=== PATIENT | male | born 1970 | race Caucasian/White ===

== ENCOUNTER 2016-11-17 10:39 | Observation (INO) | payer SELFPAY ==
--- NOTE | 2016-11-17 10:58 | ER Document Report ---
ED Medical Screen (RME) - General Stated Complaint: ARM PAIN Mode of Arrival: Ambulatory Information source: Patient Notes: Patient complains of abscess to right forearm for the past 3 weeks. Patient does report that he is a heroin IV drug user. Patient denies any fever. I have greeted and performed a rapid initial assessment of this patient. A comprehensive ED assessment and evaluation of the patient, analysis of test results and completion of the medical decision making process will be conducted by additional ED providers. TRAVEL OUTSIDE OF THE [place] IN LAST 30 DAYS: No - Related Data Allergies/Adverse Reactions: milnacipran HCl [From Savella] Allergy (Verified 11/17/16 10:57) Past Medical History - Past Medical History Cardiac Medical History: Reports: Hx Hypertension Musculoskeltal Medical History: Reports Hx Arthritis - Immunizations Immunizations up to date: No Hx Diphtheria, Pertussis, Tetanus Vaccination: Yes Physical Exam - Vital signs Vitals: Temp Pulse Resp BP 97.4 F 72 20 127/71 H 11/17/16 10:45 11/17/16 10:45 11/17/16 10:45 11/17/16 10:45 - Skin Skin irregularity: Abscess - Right forearm Course - Vital Signs Vital signs: Temp Pulse Resp BP Pulse Ox 97.4 F 72 20 127/71 H 11/17/16 10:45 11/17/16 10:45 11/17/16 10:45 11/17/16 10:45
[2016-11-17 13:20] LABS: ABSOLUTE EOSINOPHILS # (AUTO) 0.3 10^3/uL (0.0-0.6); ABSOLUTE LYMPHOCYTES (AUTO) 1.7 10^3/uL (0.5-4.7); ABSOLUTE MONOCYTES (AUTO) 1.1 10^3/uL (0.1-1.4); ABSOLUTE NEUT (AUTO) 10.5 10^3/uL (1.7-8.2); BASOPHILS % (AUTO) 0.3 % (0-2); EOSINOPHILS % (AUTO) 1.9 % (0-6); HEMATOCRIT 46.2 % (37.9-51.0); HEMOGLOBIN 14.9 g/dL (13.5-17.0); HGB HCT DIFFERENCE -1.5; LYMPHOCYTES % (AUTO) 12.4 % (13-45); MEAN CORPUSCULAR HEMOGLOBIN 28.3 pg (27.0-33.4); MEAN CORPUSCULAR HGB CONC 32.3 g/dL (32.0-36.0); MEAN CORPUSCULAR VOLUME 88 fl (80-97); RED BLOOD COUNT 5.27 10^6/uL (4.35-5.55); RED CELL DISTRIBUTION WIDTH 13.9 % (11.5-14.0); SEGMENTED NEUTROPHILS % (AUTO) 77.4 % (42-78); WHITE BLOOD COUNT 13.5 10^3/uL (4.0-10.5)
--- NOTE | 2016-11-17 13:23 | ER Document Report ---
ED Extremity Problem, Upper - General Chief Complaint: Arm Pain Stated Complaint: ARM PAIN Mode of Arrival: Ambulatory Notes: This is a [id number]-twccfeff 38-year-old male with a history of heroin abuse that presents today with right forearm pain. He states that one month ago he was using heroin and missed a vein. He noticed a small bump that progressively got larger and more erythematous. Over the past 2 days he has tried draining abscess himself. He states that yesterday he withdrew with a needle approximately 60 mL of brown and yellow fluid. Denies vomiting or fever but admits to chills and nausea. He admits to constant 9 out of 10 right arm pain with movement. He characterizes the pain as a tightness. TRAVEL OUTSIDE OF THE [place] IN LAST 30 DAYS: No - Related Data Allergies/Adverse Reactions: milnacipran HCl [From Savella] Allergy (Verified 11/17/16 10:58) Past Medical History - General Information source: Patient - Social History Smoking Status: Current Every Day Smoker Chew tobacco use (# tins/day): No Frequency of alcohol use: Social Drug Abuse: Heroin Family History: Reviewed & Not Pertinent Patient has suicidal ideation: No Patient has homicidal ideation: No - Past Medical History Cardiac Medical History: Reports: Hx Hypertension Renal/ Medical History: Denies: Hx Peritoneal Dialysis Musculoskeltal Medical History: Reports Hx Arthritis - Immunizations Immunizations up to date: No Hx Diphtheria, Pertussis, Tetanus Vaccination: Yes Review of Systems - Review of Systems Constitutional: denies: Chills, Fever EENT: No symptoms reported Cardiovascular: No symptoms reported Respiratory: No symptoms reported Gastrointestinal: No symptoms reported Genitourinary: No symptoms reported Musculoskeletal: See HPI Skin: See HPI Hematologic/Lymphatic: No symptoms reported Neurological/Psychological: No symptoms reported Physical Exam - Vital signs Vitals: Temp Pulse Resp BP 97.4 F 72 20 127/71 H 11/17/16 10:45 11/17/16 10:45 11/17/16 10:45 11/17/16 10:45 - General General appearance: Appears well In distress: None - HEENT Head: Normocephalic, Atraumatic Eyes: Normal Conjunctiva: Normal - Respiratory Respiratory status: No respiratory distress Breath sounds: Normal. No: Rales, Rhonchi, Stridor, Wheezing - Cardiovascular Rhythm: Regular Heart sounds: Normal auscultation - Abdominal Bowel sounds: Normal Tenderness: Nontender - Extremities General upper extremity: Tender - Right mid forearm erythematous raised 4 x 3 cm area. It is soft to touch General lower extremity: Normal inspection, Nontender, Normal strength - Neurological Cognition: Normal. No: Confused - Psychological Associated symptoms: Normal affect, Normal mood - Skin Skin Temperature: Warm Skin Moisture: Dry Skin Color: Normal Course - Re-evaluation Re-evalutation: 11/17/16 11:02 Patient was discussed with Dr. Loomis. He was taken to the OR for surgical evaluation and drainage. - Vital Signs Vital signs: Temp Pulse Resp BP Pulse Ox 99.0 F 62 12 126/72 H 94 11/17/16 16:57 11/17/16 16:57 11/17/16 16:57 11/17/16 16:57 11/17/16 16:57 - Laboratory Result Diagrams: 11/17/16 12:58 11/17/16 12:58 Discharge - Discharge Clinical Impression: Abscess of right arm Condition: Stable Disposition: ADMITTED INPATIENT Admitting Provider: Surgicalist
[2016-11-17 13:37] LABS: ALANINE AMINOTRANSFERASE 16 U/L (21-72); ALBUMIN 3.7 g/dL (3.5-5.0); ALKALINE PHOSPHATASE 51 U/L (38-126); ANION GAP 10 (5-19); ASPARTATE AMINO TRANSFERASE 11 U/L (17-59); BILIRUBIN,TOTAL 0.7 mg/dL (0.2-1.3); BLOOD UREA NITROGEN 8 mg/dL (7-20); CALCIUM 9.4 mg/dL (8.4-10.2); CARBON DIOXIDE 29 mmol/L (22-30); CHLORIDE 101 mmol/L (98-107); GLUCOSE 82 mg/dL (75-110); POTASSIUM 4.5 mmol/L (3.6-5.0); SODIUM 140.1 mmol/L (137-145); TOTAL PROTEIN 6.7 g/dL (6.3-8.2)
[2016-11-17] MEDS ORDERED: LIDOCAINE 1%/EPINEPHRINE INJ 20 ML VIAL ONE (14:14)
[2016-11-17] MEDS ORDERED: BUPIVACAINE HCL 0.25 % INJ/PF (2.5 MG/1 ML) 30 ML VIAL ONE (14:14)
[2016-11-17] MEDS ORDERED: EPHEDRINE SULFATE INJ 50 MG/1 ML AMPULE ONE (14:43)
[2016-11-17] MEDS ORDERED: FENTANYL CITRATE INJ/PF 250 MCG/5 ML AMPULE ONE (14:43)
[2016-11-17] MEDS ORDERED: MIDAZOLAM 2 MG/2 ML INJ ONE ×2 (14:43→15:13)
[2016-11-17] MEDS ORDERED: PROPOFOL INJ 200 MG/20 ML VIAL IV ONE ×2 (14:44→15:13)
[2016-11-17] MEDS ORDERED: DEXMEDETOMIDINE INJ 80 MCG/20 ML VIAL IV ONE (14:44)
[2016-11-17] MEDS ORDERED: FENTANYL CITRATE INJ/PF 100 MCG/2 ML AMPUL ONE ×2 (15:13)
[2016-11-17] MEDS ORDERED: HYDROMORPHONE HCL INJ/PF 2 MG/ML AMPULE ONE (15:46)
[2016-11-17] MEDS ORDERED: MORPHINE SULFATE 10 MG/ML INJ IV PRN ×2 (15:55→16:09)
[2016-11-17] MEDS ORDERED: DIPHENHYDRAMINE HCL 50 MG/ML VIAL IV PRN (15:55)
[2016-11-17] MEDS ORDERED: FENTANYL CITRATE INJ/PF 100 MCG/2 ML AMPUL IV PRN ×3 (15:55)
[2016-11-17] MEDS ORDERED: PROMETHAZINE HCL INJ 25 MG/1 ML VIAL IV PRN ×2 (15:55)
[2016-11-17] MEDS ORDERED: OXYCODONE-ACETAMINOPHEN 5-325 MG TABLET PO PRN ×2 (15:55)
[2016-11-17] MEDS ORDERED: MEPERIDINE HCL/PF INJ 25 MG/1 ML DISP.SYRIN IV PRN (15:55)
[2016-11-17] MEDS ORDERED: ERTAPENEM SODIUM 1 GM in NORMAL SALINE 50 ML IV ONE (16:00)
[2016-11-17] MEDS ORDERED: KETOROLAC TROMETHAMINE INJ/PF 30 MG/1 ML SDV IV PRN (16:16)
--- NOTE | 2016-11-17 16:21 | Operative Report ---
Operative Report DATE OF SURGERY: 11/17/16 PREOPERATIVE DIAGNOSIS: Right forearm abscess POSTOPERATIVE DIAGNOSIS: Right forearm abscess OPERATION: Right forearm abscess incision and drainage SURGEON: REBECCA MEJIA ANESTHESIA: GA TISSUE REMOVED OR ALTERED: Pus sent for Gram stain and culture COMPLICATIONS: None ESTIMATED BLOOD LOSS: minimal INTRAOPERATIVE FINDINGS: Proximally 3 x 5 cm abscess cavity in the patient's right mid radial dorsal forearm fail with foul-smelling pus. PROCEDURE: Informed consent was obtained. Patient was brought to the operating room placed on the operating table in supine position. After saturation induction of general anesthesia patient's right arm was prepped and draped in usual sterile fashion. Patient had a diffuse area of redness with central fluctuance at the mid right radial dorsal forearm. At the maximum fluctuant region a longitudinally oriented incision was made entering an abscess cavity filled with pus. The abscess cavity itself measured about 5 x 3 cm inside. it was probed to make sure there were no undrained tracts. Hemostasis was achieved with electrocautery just at the skin edges. The wound was then irrigated. The wound was then packed with iodoform gauze. Local anesthetic was injected. Patient tolerated procedure well with no apparent competitions and was taken to the recovery area in stable condition.
[2016-11-17 17:03] VITALS: BP 126/72
--- NOTE | 2016-11-17 18:38 | DISCHARGE SUMMARY E ---
Discharge Summary NAME: ADYE MCKEON : 1970 AGE: 46Y ADMITTED: 11/17/2016 DISCHARGED: 11/17/2016 LEAVE AGAINST MEDICAL ADVICE NOTE DISCHARGE DIAGNOSIS: Right forearm abscess. PROCEDURE PERFORMED DURING HOSPITALIZATION: Right forearm abscess incision and drainage performed by Dr. Marcus Mejia on 11/17/2016. HOSPITAL COURSE: The patient underwent the above-mentioned surgery. Upon recovering from anesthesia, the patient decided to leave against medical advice. DICTATING PHYSICIAN: MARCUS MEJAI M.D. [id number] PHY#: [id number] ID: [id number] JOB#: [id number] ACCT: [id number] cc:Christie OROZCO MD, M.D. [facility],
[2016-11-17] MEDS ORDERED: LIDOCAINE 2% INJ-PF (20 MG/ML) 10 ML AMPUL ONE (19:05)
[2016-11-17] MEDS ORDERED: SUCCINYLCHOLINE CHLORIDE INJ 200 MG/10 ML VIAL ONE (19:05)
[2016-11-17] MEDS ORDERED: ONDANSETRON HCL INJ/PF 4 MG/2 ML SDV ONE (19:05)
--- NOTE | 2016-11-27 10:08 | PDOC H&P ---
History of Present Illness Patient complains of: Right forearm pain History of Present Illness: AYDE MCKEON is a 46 year old male With long history of heroin abuse noted with the right forearm pain and redness and swelling for the past month. It has been worsening the past couple of days with the purulent drainage. Uncertain whether he has had any fevers or chills. No known history of HIV or hepatitis Past Medical History Cardiac Medical History: Reports: Hypertension Musculoskeltal Medical History: Reports: Arthritis Social History Smoking Status: Current Every Day Smoker Hx Recreational Drug Use: Yes Drugs: Heroin Family History Family History: Reviewed & Not Pertinent Parental Family History Reviewed: No Children Family History Reviewed: No Sibling(s) Family History Reviewed.: No Medication/Allergy Home Medications: No Home Medications 05/11/16 Allergies/Adverse Reactions: milnacipran HCl [From Savella] Allergy (Verified 11/17/16 10:58) Physical Exam Vital Signs: Temp Pulse Resp BP Pulse Ox 97.4 F 72 20 127/71 H 11/17/16 10:45 11/17/16 10:45 11/17/16 10:45 11/17/16 10:45 Intake & Output 11/16/16 11/17/16 11/18/16 06:59 06:59 06:59 Weight 83.9 kg General appearance: PRESENT: no acute distress Respiratory exam: PRESENT: clear to auscultation oscar Cardiovascular exam: PRESENT: RRR GI/Abdominal exam: PRESENT: other - Soft nondistended nontender to palpation, no palpable hepatosplenomegaly Extremities exam: PRESENT: other - Left arm with multiple track syed but no erythema no induration. Right forearm at the dorsal radial aspect with approximately 6 cm region of fluctuance with the erythema and tenderness. Neurovascularly intact distally. Assessment & Plan - Diagnosis (1) Abscess Is this a current diagnosis for this admission?: YesPlan: Large right forearm abscess. Will plan incision and drainage and washout in the operating room. I have discussed with patient risk and benefits of procedure including risk of adjacent structure injury and spreading of infection and bleeding patient understands and agrees to proceed.
== END 2016-11-17 19:18 | disposition left against medical advice (07) ==
LOC: ER 10:39 → INTOOBSV 12:57 → EH 12:57 → UNDOADMIN 13:48 → 4N 17:22
PROC: 0H9DXZZ Drainage of Right Lower Arm Skin, External Approach (ICD-10-PCS; principal; 2016-11-17 15:00)
DX: L02.413 Cutaneous abscess of right upper limb (principal); F11.10 Opioid abuse, uncomplicated; I10 Essential (primary) hypertension; M19.90 Unspecified osteoarthritis, unspecified site; F17.210 Nicotine dependence, cigarettes, uncomplicated
CPT/HCPCS: 99284; 36415; 87070; 87205; 85025; 87075; 87077; 80053; 86701; 80074; 10061; G0378; J2250; J3010; J1170; J0330; J2405; J2704; J3490; 400

== ENCOUNTER 2016-11-18 08:09 | Emergency (ER) | payer SELFPAY ==
[2016-11-18 08:14] VITALS: BP 134/77
[2016-11-18] MEDS ORDERED: SULFAMETHOXAZOLE/TRIMETHOPRIM 800-160 MG TABLET PO ONE (08:35)
--- NOTE | 2016-11-18 08:42 | ER Document Report ---
HPI - HPI Patient complains to provider of: right arm abscess I and D recheck Onset: Last week Onset/Duration: Gradual Quality of pain: Burning Pain Level: 2 Context: 46 yo male here for the right forearm abscess recheck. It was an abscess caused by IV injection of Heroin. He states it feels much better, no fever, no chest pain or sob. Taking the antibiotic. - REPRODUCTIVE Reproductive: DENIES: : - DERM Skin Color: Normal Past Medical History - General Information source: Patient - Social History Smoking Status: Current Every Day Smoker Chew tobacco use (# tins/day): No Frequency of alcohol use: None Drug Abuse: Heroin Lives with: Family Family History: Reviewed & Not Pertinent Patient has suicidal ideation: No Patient has homicidal ideation: No - Past Medical History Cardiac Medical History: Reports: Hx Hypertension Musculoskeltal Medical History: Reports Hx Arthritis Skin Medical History: Denies Hx MRSA Surgical Hx: Negative - Immunizations Immunizations up to date: No Hx Diphtheria, Pertussis, Tetanus Vaccination: Yes Vertical Provider Document - CONSTITUTIONAL Agree With Documented VS: Yes Exam Limitations: No Limitations General Appearance: No Apparent Distress - INFECTION CONTROL TRAVEL OUTSIDE OF THE [place] IN LAST 30 DAYS: No - HEENT HEENT: Normocephalic - NECK Neck: Supple - RESPIRATORY Respiratory: Breath Sounds Normal, No Respiratory Distress O2 Sat by Pulse Oximetry: 100 - CARDIOVASCULAR Cardiovascular: Regular Rate, Regular Rhythm - MUSCULOSKELETAL/EXTREMETIES Musculoskeletal/Extremeties: MAEW, FROM, Tender - incision dorsal mid right arm with packing. no pus, minimal surrounding erythema, some edema to the forearm and hand. N/V intact. Course - Vital Signs Vital signs: Temp Pulse Resp BP Pulse Ox 98.1 F 69 18 134/77 H 100 11/18/16 08:14 11/18/16 08:14 11/18/16 08:14 11/18/16 08:14 11/18/16 08:14 Discharge - Discharge Clinical Impression: Abscess re-check Condition: Good Disposition: HOME, SELF-CARE Instructions: Trimethoprim-Sulfa ([facility]), Abscess ([facility]) Additional Instructions: remove the packing when you are in the shower wednesday, wash the whole woun with antibacterial soap and water dry dressing the wound will heal from inside to outside keep covered return to the ER if you have increased pain, swelling, fever, any concerns elevate the arm above the heart to reduce the swelling, use the sling Prescriptions: Sulfamethoxazole/Trimethoprim [Sulfamethoxazole-Tmp Ds Tablet] 1 each PO BID # 14 tablet Referrals: PERCY MURPHY MD [Primary Care Provider] - Follow up as needed
== END 2016-11-18 08:50 | disposition home or self-care (01) ==
LOC: ER 08:09
DX: Z48.817 Encounter for surgical aftercare following surgery on the skin and subcutaneous tissue (principal); L02.413 Cutaneous abscess of right upper limb; F11.10 Opioid abuse, uncomplicated; F17.200 Nicotine dependence, unspecified, uncomplicated
CPT/HCPCS: 99282

== ENCOUNTER 2017-05-03 07:12 | Observation (INO) | payer SELFPAY ==
[2017-05-03 07:18] VITALS: BP 174/84
[2017-05-03] MEDS ORDERED: CLONIDINE HCL 0.1 MG TABLET PO ONE (07:21)
[2017-05-03] MEDS ORDERED: ONDANSETRON 4 MG TAB.RAPDIS PO ONE (07:21)
--- NOTE | 2017-05-03 07:21 | ER Document Report ---
ED General - General Chief Complaint: Herion Withdrawal Stated Complaint: WITHDRAWAL/CHEST PAIN Time Seen by Provider: 05/03/17 07:20 Mode of Arrival: Ambulatory Information source: Patient Notes: 46-year-old male of 100 daily chest pain for 3 weeks with shortness of breath for 3 days. Her cardiac history although he is on IV heroin user 3-4 times a day for over a year. Last dose of heroin was 24 hours ago. He states he is in withdrawal. He is tachypneic with a rate of 36. Nausea vomiting or diarrhea. He states he is constipated. no hx MRSA, endocarditis, PE. TRAVEL OUTSIDE OF THE [place] IN LAST 30 DAYS: No - Related Data Allergies/Adverse Reactions: milnacipran HCl [From Savella] Allergy (Verified 05/03/17 07:16) Past Medical History - General Information source: Patient - Social History Smoking Status: Current Every Day Smoker Frequency of alcohol use: Occasional Drug Abuse: Heroin - 24 hours ago IV Lives with: Family Family History: Reviewed & Not Pertinent Patient has suicidal ideation: Yes Patient has homicidal ideation: No - Past Medical History Cardiac Medical History: Reports: Hx Hypertension Renal/ Medical History: Denies: Hx Peritoneal Dialysis Musculoskeltal Medical History: Reports Hx Arthritis Skin Medical History: Denies Hx MRSA Surgical Hx: Negative - Immunizations Immunizations up to date: No Hx Diphtheria, Pertussis, Tetanus Vaccination: Yes Review of Systems - Review of Systems Constitutional: No symptoms reported EENT: No symptoms reported Cardiovascular: See HPI Respiratory: See HPI Gastrointestinal: No symptoms reported Genitourinary: No symptoms reported Male Genitourinary: No symptoms reported Musculoskeletal: No symptoms reported Skin: No symptoms reported Hematologic/Lymphatic: No symptoms reported Neurological/Psychological: No symptoms reported Physical Exam - Vital signs Vitals: Temp Pulse Resp BP Pulse Ox 98.3 F 71 36 H 174/84 H 100 05/03/17 07:16 05/03/17 07:16 05/03/17 07:16 05/03/17 07:16 05/03/17 07:16 Interpretation: Tachypneic - General General appearance: Alert, Anxious - HEENT Head: Normocephalic, Atraumatic Eyes: Normal Conjunctiva: Normal Pupils: PERRL Mucous membranes: Dry Pharynx: Normal Neck: Supple. No: Thyromegally - Respiratory Respiratory status: No respiratory distress Chest status: Nontender Breath sounds: Normal Chest palpation: Normal - Cardiovascular Rhythm: Regular Heart sounds: Normal auscultation Murmur: No - Abdominal Inspection: Normal Distension: No distension Bowel sounds: Normal Tenderness: Nontender. No: Tender Organomegaly: No organomegaly. No: Hepatomegaly, Splenomegaly - Back Back: Normal, Nontender - Extremities General upper extremity: Normal inspection, Nontender, Normal color, Normal ROM , Normal temperature General lower extremity: Normal inspection, Nontender, Normal color, Normal ROM , Normal temperature, Normal weight bearing. No: Isiah's sign - Neurological Neuro grossly intact: Yes Cognition: Normal Orientation: AAOx4 Sarah Coma Scale Eye Opening: Spontaneous [place] Coma Scale Verbal: Oriented Sarah Coma Scale Motor: Obeys Commands Sarah Coma Scale Total: 15 Speech: Normal Motor strength normal: LUE, RUE, LLE, RLE Sensory: Normal - Psychological Associated symptoms: Normal affect, Normal mood - Skin Skin Temperature: Warm Skin Moisture: Dry Skin Color: Normal Skin irregularity: negative: Rash Course - Re-evaluation Re-evalutation: 05/03/17 08:[address] melendrez, get the CTA. 05/03/17 08:41 pt pulse now 49, the nurse is doing EKG now, t wave inversion V5 and 6, dr. melendrez aware, wants old EKG. 05/03/17 08:47 EKG from 2011 does not show any T-wave inversion. The patient states that his most recent EKG. 05/03/17 09:02 chest pain free at this time 05/03/17 10:57 CTA is negative. Call to dr. Lloyd, troponin is negative. still pain free. - Vital Signs Vital signs: Temp Pulse Resp BP Pulse Ox 98.3 F 71 36 H 174/84 H 100 05/03/17 07:16 05/03/17 07:16 05/03/17 07:16 05/03/17 07:16 05/03/17 07:16 - Laboratory Result Diagrams: 05/03/17 08:34 05/03/17 08:53 Laboratory results interpreted by me: 05/03/17 08:53 Chloride 109 H BUN 5 L ALT 20 L Creatine Kinase 45 L Discharge - Discharge Clinical Impression: Heroin abuse, t wave inversion V4,5,6 Chest pain Qualifiers: Chest pain type: unspecified Qualified Code(s): R07.9 - Chest pain, unspecified Condition: Stable Disposition: ADMITTED OBSERVATION Admitting Provider: Hospitalist Unit Admitted: Telemetry
[2017-05-03] MEDS ORDERED: ASPIRIN 81 MG TABLET, CHEWABLE PO ONE (08:04)
[2017-05-03] MEDS ORDERED: NORMAL SALINE 1000 ML 1,000 ML IV ONE (08:06)
[2017-05-03 08:41] LABS: ABSOLUTE BASOPHILS # (AUTO) 0.1 10^3/uL (0.0-0.2); ABSOLUTE EOSINOPHILS # (AUTO) 0.1 10^3/uL (0.0-0.6); ABSOLUTE LYMPHOCYTES (AUTO) 1.9 10^3/uL (0.5-4.7); ABSOLUTE MONOCYTES (AUTO) 0.7 10^3/uL (0.1-1.4); ABSOLUTE NEUT (AUTO) 7.4 10^3/uL (1.7-8.2); BASOPHILS % (AUTO) 0.6 % (0-2); EOSINOPHILS % (AUTO) 0.8 % (0-6); HEMATOCRIT 44.8 % (37.9-51.0); HEMOGLOBIN 14.8 g/dL (13.5-17.0); HGB HCT DIFFERENCE -0.4; LYMPHOCYTES % (AUTO) 18.6 % (13-45); MEAN CORPUSCULAR HEMOGLOBIN 28.3 pg (27.0-33.4); MEAN CORPUSCULAR VOLUME 86 fl (80-97); MONOCYTES % (AUTO) 6.8 % (3-13); RED BLOOD COUNT 5.23 10^6/uL (4.35-5.55); SEGMENTED NEUTROPHILS % (AUTO) 73.2 % (42-78); WHITE BLOOD COUNT 10.2 10^3/uL (4.0-10.5)
--- NOTE | 2017-05-03 08:41 | RADIOLOGY REPORT (SQ) ---
EXAM DESCRIPTION: CHEST SINGLE VIEW COMPLETED DATE/TIME: 05/03/2017 8:24 am REASON FOR STUDY: chest pain COMPARISON: 10/21/2011 EXAM PARAMETERS: NUMBER OF VIEWS: One view. TECHNIQUE: Single frontal radiographic view of the chest acquired. RADIATION DOSE: NA LIMITATIONS: None. FINDINGS: LUNGS AND PLEURA: No opacities, masses or pneumothorax. No pleural effusion. MEDIASTINUM AND HILAR STRUCTURES: No masses. Contour normal. HEART AND VASCULAR STRUCTURES: Heart normal in size. Normal vasculature. BONES: No acute findings. HARDWARE: None in the chest. OTHER: No other significant finding. IMPRESSION: NO ACUTE RADIOGRAPHIC FINDING IN THE CHEST. TECHNICAL DOCUMENTATION: JOB ID: [id number]
[2017-05-03 10:09] LABS: ALANINE AMINOTRANSFERASE 20 U/L (21-72); ALBUMIN 3.8 g/dL (3.5-5.0); ALKALINE PHOSPHATASE 63 U/L (38-126); ANION GAP 8 (5-19); ASPARTATE AMINO TRANSFERASE 27 U/L (17-59); BILIRUBIN,DIRECT 0.3 mg/dL (0.0-0.4); BILIRUBIN,TOTAL 0.7 mg/dL (0.2-1.3); BLOOD UREA NITROGEN 5 mg/dL (7-20); CALCIUM 8.9 mg/dL (8.4-10.2); CARBON DIOXIDE 26 mmol/L (22-30); CHLORIDE 109 mmol/L (98-107); CREATINE KINASE 45 U/L (55-170); CREATININE RESULT 0.74 mg/dL (0.52-1.25); GLUCOSE 104 mg/dL (75-110); POTASSIUM 3.6 mmol/L (3.6-5.0); TOTAL PROTEIN 6.9 g/dL (6.3-8.2)
[2017-05-03 10:20] LABS: CREATINE KINASE MB 0.48 ng/mL (<4.55); TROPONIN I < 0.012 ng/mL
--- NOTE | 2017-05-03 10:54 | RADIOLOGY REPORT (SQ) ---
EXAM DESCRIPTION: CTA CHEST COMPLETED DATE/TIME: 05/03/2017 10:44 am REASON FOR STUDY: chest pain shortness of breath COMPARISON: None. TECHNIQUE: CT scan of the chest performed using helical scanning technique with dynamic intravenous contrast injection. Images reviewed with lung, soft tissue and bone windows. Reconstructed coronal and sagittal MPR images reviewed. Additional 3 dimensional post-processing performed to develop Maximal Intensity Projection images (PA P). All images stored on PACS. All CT scanners at this facility use dose modulation, iterative reconstruction, and/or weight based d osing when appropriate to reduce radiation dose to as low as reasonably achievable (ALARA). [facility]: Dose Right [facility]: CareDose [facility]: Dose Right [facility]: Teradose 4D [facility]: [employer] CONTRAST TYPE AND DOSE: contrast/concentration: Isovue 370.00 mg/ml; Total Contrast Delivered: 72.0 ml; Total Saline Delivered: 100.0 ml RENAL FUNCTION: BUN 5 creatinine 0.7 RADIATION DOSE: 35.37 . LIMITATIONS: None. FINDINGS: LUNGS AND PLEURA: Dependent atelectasis. AORTA AND GREAT VESSELS: No aneurysm or dissection. HEART: No pericardial effusion. PULMONARY ARTERIES: No emboli visualized in the main pulmonary arteries or the segmental branches. HILAR AND MEDIASTINAL STRUCTURES: No identified masses or abnormal nodes. HARDWARE: None in the chest. UPPER ABDOMEN: No significant findings. Limited exam. THYROID AND OTHER SOFT TISSUES: No masses. No adenopathy. BONES: No acute or significant finding. 3D MIPS: Confirm above findings. OTHER: No other significant finding. IMPRESSION: No evidence of pulmonary embolus. TECHNICAL DOCUMENTATION: JOB ID: [id number] Quality ID # [id number]: Final reports with documentation of one or more dose reduction techniques (e.g., Au tomated exposure control, adjustment of the mA and/or kV according to patient size, use of iterative reconstruction technique) 2010 [employer]- All Rights Reserved
[2017-05-03] MEDS ORDERED: NICOTINE 21 MG/24 HR PATCH.TD24 TD PRN (11:20)
[2017-05-03 11:44] LABS: URINE BARBITURATES SCREEN NEGATIVE; URINE METHADONE SCREEN NEGATIVE; URINE OPIATES LOW UNCONFIRMED POSITIVE; URINE PHENCYCLIDINE SCREEN NEGATIVE
--- NOTE | 2017-05-03 12:43 | EKG REPORT ---
SEVERITY:- ABNORMAL ECG - SINUS BRADYCARDIA BORDERLINE LEFT AXIS DEVIATION ABNRM R PROG, CONSIDER ASMI OR LEAD PLACEMENT ABNORMAL T, CONSIDER ISCHEMIA, LATERAL LEADS : Confirmed by: Mandeep Solo MD 03-May-2017 12:42:14
== END 2017-05-03 11:23 | disposition left against medical advice (07) ==
LOC: ER 07:12 → EH 11:08
PROVIDERS: ADMIT Family Medicine; ATTEND Family Medicine
DX: F11.10 Opioid abuse, uncomplicated (principal); R07.9 Chest pain, unspecified; R94.31 Abnormal electrocardiogram [ECG] [EKG]; Z53.21 Procedure and treatment not carried out due to patient leaving prior to being seen by health care provider; K59.00 Constipation, unspecified; R06.02 Shortness of breath; R00.0 Tachycardia, unspecified; F17.200 Nicotine dependence, unspecified, uncomplicated; R82.5 Elevated urine levels of drugs, medicaments and biological substances
CPT/HCPCS: 93005; 99285; 36415; 82553; 82550; 85025; 80053; 84484; 80307; 71010; 71275; 93010; S0119; J7030

== ENCOUNTER 2018-07-18 07:49 | Emergency (ER) | payer SELFPAY ==
[2018-07-18 08:24] VITALS: BP 136/80
[2018-07-18] MEDS ORDERED: VANCOMYCIN HCL INJ 1000 MG VIAL IV ONE (10:16)
[2018-07-18] MEDS ORDERED: NICOTINE 21 MG/24 HR PATCH.TD24 TD ONE (10:16)
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
== END 2018-07-18 11:40 | disposition left against medical advice (07) ==
LOC: ER 07:49
DX: L02.414 Cutaneous abscess of left upper limb (principal); F11.10 Opioid abuse, uncomplicated; X37.0XXA Hurricane, initial encounter; Z86.14 Personal history of Methicillin resistant Staphylococcus aureus infection; I10 Essential (primary) hypertension; F17.200 Nicotine dependence, unspecified, uncomplicated
CPT/HCPCS: 36415; 87040; 87077; 87186; 99281

== ENCOUNTER 2018-08-24 15:20 | Emergency (ER) | payer SELFPAY ==
--- NOTE | 2018-08-24 15:50 | ER Document Report ---
ED GI/ - General Chief Complaint: Constipation Stated Complaint: CONSTIPATED Time Seen by Provider: 08/24/18 15:43 Mode of Arrival: Ambulatory Information source: Patient Notes: 47-year-old male presented to ED for complaint of lower abdominal pain and no bowel movement for 3 days. He states he is taking about fleets enemas as well as Ex-Lax this morning with only one small pimple-like stool. Patient is alert and oriented respirations regular and unlabored. He states he smokes about 2 packs a day states he has quit drinking but he uses heroin about $50 a day and is used it is 730 this morning. TRAVEL OUTSIDE OF THE [place] IN LAST 30 DAYS: No - HPI Patient complains to provider of: Abdominal pain, Other - The patient Onset: Other - Stool in 3 days Timing/Duration: Persistent Quality of pain: Cramping Severity at maximum: Moderate Severity in ED: Moderate Pain Level: 4 Location: Other - The last Associated symptoms: Constipation Exacerbated by: Denies Relieved by: Denies Similar symptoms previously: Yes Recently seen / treated by doctor: Yes - Related Data Allergies/Adverse Reactions: milnacipran HCl [From Savella] Allergy (Verified 08/24/18 15:20) Past Medical History - General Information source: Patient - Social History Smoking Status: Current Every Day Smoker Cigarette use (# per day): Yes - 2 Per day Chew tobacco use (# tins/day): No Smoking Education Provided: Yes - 4 min Frequency of alcohol use: states he stopped Drug Abuse: Heroin Occupation: electrician third Lives with: Friend Family History: Reviewed & Not Pertinent Patient has suicidal ideation: No Patient has homicidal ideation: No - Past Medical History Cardiac Medical History: Reports: Hx Hypertension Pulmonary Medical History: Reports: None EENT Medical History: Reports: None Neurological Medical History: Reports: None Endocrine Medical History: Reports: None Renal/ Medical History: Reports: None Malignancy Medical History: Reports None GI Medical History: Reports: None Musculoskeletal Medical History: Reports Hx Arthritis Skin Medical History: Reports None Psychiatric Medical History: Reports: None Traumatic Medical History: Reports: None Infectious Medical History: Reports: None Past Surgical History: Reports: Hx Orthopedic Surgery - Immunizations Immunizations up to date: No Hx Diphtheria, Pertussis, Tetanus Vaccination: Yes Review of Systems - Review of Systems Constitutional: No symptoms reported EENT: No symptoms reported Cardiovascular: No symptoms reported Respiratory: No symptoms reported Gastrointestinal: Abdominal pain, Constipation Genitourinary: No symptoms reported Male Genitourinary: No symptoms reported Musculoskeletal: No symptoms reported Skin: No symptoms reported Hematologic/Lymphatic: No symptoms reported Neurological/Psychological: No symptoms reported -: Yes All other systems reviewed and negative Physical Exam - Vital signs Vitals: Temp Pulse Resp BP Pulse Ox 98.0 F 69 16 185/78 H 96 08/24/18 15:53 08/24/18 15:53 08/24/18 15:53 08/24/18 15:53 08/24/18 15:53 Interpretation: Normal - General General appearance: Appears well, Alert - HEENT Head: Normocephalic, Atraumatic Eyes: Normal Pupils: PERRL - Respiratory Respiratory status: No respiratory distress Chest status: Nontender Breath sounds: Normal Chest palpation: Normal - Cardiovascular Rhythm: Regular Heart sounds: Normal auscultation Murmur: No - Abdominal Inspection: Normal Distension: No distension Bowel sounds: Hyperactive Tenderness: Tender - general Organomegaly: No organomegaly - Back Back: Normal, Nontender - Extremities General upper extremity: Normal inspection, Nontender, Normal color, Normal ROM , Normal temperature General lower extremity: Normal inspection, Nontender, Normal color, Normal ROM , Normal temperature, Normal weight bearing. No: Isiah's sign - Neurological Neuro grossly intact: Yes Cognition: Normal Orientation: AAOx4 [place] Coma Scale Eye Opening: Spontaneous Sarah Coma Scale Verbal: Oriented Sarah Coma Scale Motor: Obeys Commands [place] Coma Scale Total: 15 Speech: Normal Motor strength normal: LUE, RUE, LLE, RLE Sensory: Normal - Psychological Associated symptoms: Normal affect, Normal mood - Skin Skin Temperature: Warm Skin Moisture: Dry Skin Color: Normal Course - Re-evaluation Re-evalutation: 08/25/18 00:[address] Mccoy for the abdominal pain with constipation. Patient states he has not had a stool in 3 days. He states he is used for fleets enemas in the last 2 days with no relief. He also states he uses heroin about $ 50 worth a day and used some at [address] Mccoy recommended treating the patient with GoLYTELY and discharge the patient home to follow-up with his primary doctor. Patient has no other complaints except for the constipation. Patient was given a dose of GoLYTELY to take home and complete. He states he is used this before in the past and it is helped a lot. Patient instructed to return to the ED if no relief from the constipation or any increase in symptoms. Patient verbalized understanding of a instructions and agreement with treatment plan and was discharged home. - Vital Signs Vital signs: Temp Pulse Resp BP Pulse Ox 98.0 F 69 16 185/78 H 96 08/24/18 15:53 08/24/18 15:53 08/24/18 15:53 08/24/18 15:53 08/24/18 15:53 - Diagnostic Test Radiology reviewed: Image reviewed, Reports reviewed Discharge - Discharge Clinical Impression: Constipation Qualifiers: Constipation type: unspecified constipation type Qualified Code(s): K59.00 - Constipation, unspecified Condition: Stable Disposition: HOME, SELF-CARE Instructions: Narcotic Abuse ([facility]) Additional Instructions: ABDOMINAL PAIN: There are many causes of abdominal pain. Pain can mean a serious problem requiring surgery (such as appendicitis). It can also be an innocent problem that goes away on its own (such as a viral infection). Often, time must pass to determine the cause of pain. The physician does not feel that hospitalization is necessary, at present. Things may change within the next 24 hours. Call the doctor or come back for re- examination if any problems occur, such as: (1) Pain that becomes more severe, steady, or becomes concentrated in one specific area. Also, pain that is more severe with movement or coughing. (2) Vomiting that persists or becomes more frequent. (3) Blood in the vomitus, urine, or bowel movements. Blood in the stool may have a tarry or black appearance. (4) Shaking chills or fever greater than 100 degrees F. (5) The abdomen becomes more distended or swollen. (6) Bowel movements cease. (7) Failure to improve as expected. NORMAL EXAM AND WORKUP: At this time, your examination and workup show no significant abnormality. No significant abnormal physical findings are noted. All laboratory, EKG, and imaging (x-ray, CT scans, ultrasound) studies that were ordered show no significant abnormality. Although your examination and all studies that were ordered showed no significant abnormal finding, there are no examinations and no studies that are 100% accurate. There is always the possibility that some abnormality could exist and not be detected with physical examination or within the limits and capabilities of laboratory and other studies. You should return or follow up as you were instructed on your visit today for further evaluation if your symptoms do not resolve. CONSTIPATION: Constipation is a common problem. It is especially likely as you get older. Constipation is a common cause of abdominal pain, but sometimes causes no symptoms at all. Causes of constipation include certain medications, dehydration, diets, inactivity, and low-fiber intake. Rarely, it can be a symptom of underlying disease. The physician has evaluated you for this. Avoid constipation by eating a diet high in fiber, fruits, and vegetables. Drink plenty of liquids. Get regular exercise. If possible, avoid constipating medicines like narcotic pain medication. Some vitamin tablets can cause constipation. Stool softeners may be needed for difficult cases. An excellent stool softener is Konsyl which is available at [employer], [employer] drug [employer]. Just add a teaspoon to a glass of pineapple or orange juice daily or twice a day if needed. Laxatives are useful for occasional constipation. You should use them only when necessary. Too-frequent use can make your bowels dependent on them. Some over the counter laxatives available without prescription are: Milk of Magnesia, 1-2 tablespoons twice a day Dulcolax, 5 mg pill or 10 mg suppository. Citrate of Magnesia, 4-5 ounces a day for a day or two For acute constipation, Fleet's Enemas and Dulcolax suppositories are helpful. Chronic, lobsterman use of laxatives or enemas is not a good idea. Your bowel may become dependant on them. You do not need to have a bowel movement every day. Many people do fine with a bowel movement every three or four days. You should call your doctor or return for re-evaluation if you pass blood in the stool, or if you develop fever or increasing abdominal pain. BULK LAXATIVES: Bulk laxatives make the stool softer and bulkier. They're useful for preventing constipation. You can choose between psyllium, methylcellulose, and polycarbophil. They are available without a prescription. Psyllium brand names include Konsyl, Metamucil, Perdiem, Effer-Syllium and Hydrocil. It's available as powder, flavored drink powder, or chewable. The usual dose of psyllium powder is one heaping teaspoon in water each morning, increasing to twice a day if needed. [place] juice can disguise the slightly grainy texture. Methylcellulose is marketed as Citrucel and other brands. The average dose is two grams in a cup of water one to three times a day. Polycarbophil is marketed as Fiber-Con. Take two tablets with a cup of water one to three times a day. LAXATIVE: A laxative agent has been prescribed for your condition. This should result in passage of stool within 12 hours. Some mild intestinal cramping is common as the hard stool begins to move. You may have loose or runny stools for a short time. Contact your doctor if there is severe cramping, vomiting, or passage of blood. Return for further care if this medicine fails to improve your condition. FOLLOW-UP CARE: If you have been referred to a physician for follow-up care, call the physician s office for an appointment as you were instructed or within the next two days. If you experience worsening or a significant change in your symptoms, notify the physician immediately or return to the Emergency Department at any time for re-evaluation. Forms: Elevated Blood Pressure, Smoking Cessation Education
[2018-08-24] MEDS ORDERED: MINERAL OIL 30 ML UDCUP PR ONE (15:51)
[2018-08-24 15:54] VITALS: BP 185/78
[2018-08-24] MEDS ORDERED: PEG 3350/NA SULF,BICARB,CL/KCL 4000 ML PO ONE (15:58)
--- NOTE | 2018-08-24 16:12 | RADIOLOGY REPORT (SQ) ---
EXAM DESCRIPTION: ACUTE ABDOMEN SERIES COMPLETED DATE/TIME: 08/24/2018 4:02 pm REASON FOR STUDY: abdominal pain no bm for 3 days COMPARISON: CT chest 05/03/2017, chest films 05/03/2017 NUMBER OF VIEWS: Three views. TECHNIQUE: Frontal chest, supine abdomen and upright abdomen radiographic images acquired. LIMITATIONS: None. FINDINGS: CHEST: Lungs clear of infiltrates. Cardiac silhouette size, roxy unremarkable. FREE AIR: None. No abnormal gas collections. BOWEL GAS PATTERN: Nonobstructive pattern. No dilated loops or air fluid levels. Moderate stool thro ughout the colon CALCIFICATIONS: No suspicious calcifications. HARDWARE: None in the abdomen. SOFT TISSUES: No gross mass or suggestion of organomegaly. BONES: No acute fracture. No worrisome bone lesions. OTHER: No other significant finding. IMPRESSION: NO RADIOGRAPHIC EVIDENCE FOR ACUTE ABDOMINAL DISEASE. TECHNICAL DOCUMENTATION: JOB ID: [id number] [employer]- All Rights Reserved Reading location - IP/workstation name: [email or web address]
[2018-08-24] MEDS ORDERED: ONDANSETRON ODT 4 MG TAB (6 TAB/ER DISP) PO PRN (16:13)
== END 2018-08-24 16:24 | disposition home or self-care (01) ==
LOC: ER 15:20
DX: K59.00 Constipation, unspecified (principal); R10.30 Lower abdominal pain, unspecified; F11.10 Opioid abuse, uncomplicated; F17.210 Nicotine dependence, cigarettes, uncomplicated; I10 Essential (primary) hypertension
CPT/HCPCS: 99406; 99283; 74022; J3490

== ENCOUNTER 2019-03-11 13:45 | Emergency (ER) | payer SELFPAY ==
--- NOTE | 2019-03-11 14:01 | ER Document Report ---
ED Medical Screen (RME) - General Chief Complaint: Low Back Pain Stated Complaint: SHORTNESS OF BREATH, WEAKNESS Time Seen by Provider: 03/11/19 13:54 Mode of Arrival: Ambulatory Information source: Patient Notes: Patient is a 48-year-old male presenting to the emergency department with chief complaint of shortness of breath, night sweats, low back pain without injury and feeling altered and confused. Patient reports he uses IV drugs, states he uses heroin and cocaine, states his last use was this morning. Patient has slightly slurred speech and is slow to respond, he states this is not normal for him and he is usually very hyper. Patient denies any chest pain or headache. Patient immediately upgraded to NAS to and charge nurse made aware of need for bed assignment. I have greeted and performed a rapid initial assessment of this patient. A comprehensive ED assessment and evaluation of the patient, analysis of test results and completion of the medical decision making process will be conducted by additional ED providers. Dictation of this chart was performed using voice recognition software; therefore, there may be some unintended grammatical errors. TRAVEL OUTSIDE OF THE [place] IN LAST 30 DAYS: No - Related Data Allergies/Adverse Reactions: milnacipran HCl [From Savella] Allergy (Verified 03/11/19 13:46) Past Medical History - Past Medical History Cardiac Medical History: Reports: Hx Hypertension Renal/ Medical History: Denies: Hx Peritoneal Dialysis Musculoskeltal Medical History: Reports Hx Arthritis Skin Medical History: Denies Hx MRSA Past Surgical History: Reports: Hx Orthopedic Surgery - Immunizations Immunizations up to date: No Hx Diphtheria, Pertussis, Tetanus Vaccination: Yes Physical Exam - Vital signs Vitals: Temp Pulse Resp BP Pulse Ox 98.1 F 80 16 101/46 L 100 03/11/19 13:52 03/11/19 13:52 03/11/19 13:52 03/11/19 13:52 03/11/19 13:52 Course - Vital Signs Vital signs: Temp Pulse Resp BP Pulse Ox 98.1 F 80 16 101/46 L 100 03/11/19 13:52 03/11/19 13:52 03/11/19 13:52 03/11/19 13:52 03/11/19 13:52
--- NOTE | 2019-03-11 15:02 | RADIOLOGY REPORT (SQ) ---
EXAM DESCRIPTION: CHEST SINGLE VIEW COMPLETED DATE/TIME: 03/11/2019 2:44 pm REASON FOR STUDY: altered mental status COMPARISON: CT chest 05/03/2017 AP chest 10/21/2011 EXAM PARAMETERS: NUMBER OF VIEWS: One view. TECHNIQUE: Single frontal radiographic view of the chest acquired. RADIATION DOSE: NA LIMITATIONS: None. FINDINGS: LUNGS AND PLEURA: Mild bilateral perihilar pulmonary edema. Mild interstitial edema with Sonny lines at both lung bases. No pleural effusion or pneumothorax. No dense consolidation worrisome for pneumonia. MEDIASTINUM AND HILAR STRUCTURES: No masses. Contour normal. HEART AND VASCULAR STRUCTURES: No cardiomegaly BONES: No acute findings. HARDWARE: None in the chest. OTHER: No other significant finding. IMPRESSION: Fluid overload or congestive failure with interstitial edema and mild bilateral perihila r pulmonary edema TECHNICAL DOCUMENTATION: JOB ID: [id number] [employer]- All Rights Reserved Reading location - IP/workstation name: [email or web address]
[2019-03-11 15:11] LABS: ABSOLUTE EOSINOPHILS # (AUTO) 0.1 10^3/uL (0.0-0.6); ABSOLUTE LYMPHOCYTES (AUTO) 1.2 10^3/uL (0.5-4.7); ABSOLUTE MONOCYTES (AUTO) 0.4 10^3/uL (0.1-1.4); BASOPHILS % (AUTO) 0.4 % (0-2); EOSINOPHILS % (AUTO) 0.9 % (0-6); HEMATOCRIT 28.6 % (37.9-51.0); HEMOGLOBIN 9.5 g/dL (13.5-17.0); LYMPHOCYTES % (AUTO) 15.4 % (13-45); MEAN CORPUSCULAR HEMOGLOBIN 26.7 pg (27.0-33.4); MEAN CORPUSCULAR HGB CONC 33.1 g/dL (32.0-36.0); MEAN CORPUSCULAR VOLUME 81 fl (80-97); MONOCYTES % (AUTO) 5.5 % (3-13); PLATELET COUNT 185 10^3/uL (150-450); RED BLOOD COUNT 3.56 10^6/uL (4.35-5.55); RED CELL DISTRIBUTION WIDTH 15.7 % (11.5-14.0); SEGMENTED NEUTROPHILS % (AUTO) 77.8 % (42-78); TOTAL CELLS COUNTED % (AUTO) 100 %; WHITE BLOOD COUNT 7.7 10^3/uL (4.0-10.5)
[2019-03-11 15:28] LABS: ALANINE AMINOTRANSFERASE 18 U/L (21-72); ALBUMIN 2.9 g/dL (3.5-5.0); ALKALINE PHOSPHATASE 62 U/L (38-126); ANION GAP 10 (5-19); ASPARTATE AMINO TRANSFERASE 29 U/L (17-59); BILIRUBIN,DIRECT 0.4 mg/dL (0.0-0.4); BILIRUBIN,TOTAL 1.1 mg/dL (0.2-1.3); BLOOD UREA NITROGEN 15 mg/dL (7-20); CALCIUM 8.3 mg/dL (8.4-10.2); CARBON DIOXIDE 30 mmol/L (22-30); CHLORIDE 96 mmol/L (98-107); GLUCOSE 95 mg/dL (75-110); SODIUM 136.4 mmol/L (137-145); TOTAL PROTEIN 6.6 g/dL (6.3-8.2)
[2019-03-11 15:29] LABS: ALCOHOL < 10 mg/dL (NONE DETECTED)
[2019-03-11] MEDS ORDERED: NORMAL SALINE 1000 ML 1,000 ML IV ONE (16:04)
[2019-03-11 16:12] LABS: CREATINE KINASE MB 0.99 ng/mL (<4.55)
[2019-03-11 16:14] LABS: TROPONIN I 0.509 ng/mL
[2019-03-11] MEDS ORDERED: ASPIRIN 81 MG TABLET, CHEWABLE PO ONE (16:34)
--- NOTE | 2019-03-11 16:35 | ER Document Report ---
ED General - General Chief Complaint: Low Back Pain Stated Complaint: SHORTNESS OF BREATH, WEAKNESS Time Seen by Provider: 03/11/19 13:54 Mode of Arrival: Ambulatory TRAVEL OUTSIDE OF THE [place] IN LAST 30 DAYS: No - HPI Notes: Patient is a 48-year-old male who presents to the emergency department for evaluation. Initially starts talking to me about low back pain. He states he has pain over his "sciatic nerve" that radiates into his right leg. He denies any bowel or bladder incontinence, no saddle anesthesia, no focal numbness or weakness. He states however that since then he has been getting short of breath with exertion. He started having swelling of his ankles over the last week. He denies any paroxysmal nocturnal dyspnea and has not noted any significant orthopnea. He denies any chest pain of any sort, states he just feels short of breath with any sort of movement. He denies any fevers but states he has had some significant night sweats. He states he is lost a significant amount of weight in the last several weeks as well. He also admits to a long-standing history of drug abuse. Last used IV heroin this morning. - Related Data Allergies/Adverse Reactions: milnacipran HCl [From Savella] Allergy (Verified 03/11/19 13:46) Past Medical History - General Information source: Patient - Social History Smoking Status: Current Every Day Smoker Chew tobacco use (# tins/day): No Frequency of alcohol use: None Drug Abuse: Cocaine, Heroin Family History: Reviewed & Not Pertinent Patient has suicidal ideation: No Patient has homicidal ideation: No - Past Medical History Cardiac Medical History: Reports: Hx Hypertension Renal/ Medical History: Denies: Hx Peritoneal Dialysis Musculoskeletal Medical History: Reports Hx Arthritis Skin Medical History: Denies Hx MRSA Past Surgical History: Reports: Hx Orthopedic Surgery - Immunizations Immunizations up to date: No Hx Diphtheria, Pertussis, Tetanus Vaccination: Yes Review of Systems - Review of Systems Constitutional: See HPI EENT: No symptoms reported Cardiovascular: See HPI Respiratory: See HPI Gastrointestinal: No symptoms reported Genitourinary: No symptoms reported Musculoskeletal: See HPI Skin: See HPI Neurological/Psychological: No symptoms reported Physical Exam - Vital signs Vitals: Temp Pulse Resp BP Pulse Ox 98.1 F 80 16 101/46 L 100 03/11/19 13:52 03/11/19 13:52 03/11/19 13:52 03/11/19 13:52 03/11/19 13:52 - Notes Notes: 48-year-old male, disheveled, no obvious or apparent distress. Head is nor cephalic and atraumatic. Pupils are equal, round, reactive to light. Oral muc gema is moist. Heart is regular with harsh systolic murmur. Lungs show bibasilar rales. Abdomen soft, nontender, normoactive bowel sounds. Patient with 2+ pretibial edema without posterior calf tenderness. Skin is warm and dry. Peripheral pulses are equal. Patient is awake and alert, slow to answer questions but answers them appropriately. Moves all 4 extremities spontaneously. No gross facial asymmetry. Course - Re-evaluation Re-evalutation: 03/11/19 16:33 Patient presents emergency department for evaluation. Initial labs is placed through triage. My primary concern was decompensated heart failure in this patient. He was placed on a rn cardiac cath, EKG and additional blood work was obtained. Laboratory investigations revealed a troponin of 0.5, proBNP of 11,000. He is also anemic with a hemoglobin of 9.5. EKG showed anterolateral ischemic changes, but this was largely unchanged from prior study performed in 2017. Patient remained chest pain-free throughout the course of his stay. His blood pressure did drop into the 70s. He is oxygenating well despite being kept in bed, placed more flat. Recheck of blood pressure was 106/43. I do not want to give fluids to this patient, but I am hesitant on what the best pressor would be in this patient with decompensated heart failure as well as known drug use. Currently awaiting consultation from cardiology at [facility]. 03/11/19 17:[address] Coppola at [facility] [place]. He agrees and the avoidance of beta-blockers as well as administration of aspirin. He asks that the patient be given low-dose Lasix, started on heparin. He states that dopamine would be pressure of choice should become necessary. He will see the patient in consultation, asks that we discussed this further with the medical service. Awaiting phone call from internal medicine physician at [facility]. 03/11/19 17:[address] Owusu, medicine physician at [facility], who accepted the patient in transfer. 03/11/19 19:26 I was notified by nursing the patient was becoming extremely agitated. He wanted to smoke a cigarette, did not want to stay in the hospital. He stated that he wanted to leave AGAINST MEDICAL ADVICE. I explained to him the significant risk that he was taking by doing this. I explained to him the risk of stroke, heart failure, sudden cardiac , loss of lifestyle, etc. He voiced understanding to this, still refused to stay and wait for transport. He left the hospital AGAINST MEDICAL ADVICE. - Vital Signs Vital signs: Temp Pulse Resp BP Pulse Ox 98.1 F 80 26 H 120/41 L 94 03/11/19 13:52 03/11/19 13:52 03/11/19 19:16 03/11/19 19:16 03/11/19 19:01 - Laboratory Result Diagrams: 03/11/19 14:23 03/11/19 14:23 Laboratory results interpreted by me: 03/11/19 03/11/19 03/11/19 14:23 14:23 14:23 RBC 3.56 L Hgb 9.5 L Hct 28.6 L MCH 26.7 L RDW 15.7 H Sodium 136.4 L Chloride 96 L Calcium 8.3 L Magnesium 2.6 H ALT 18 L Creatine Kinase 25 L NT-Pro-B Natriuret Pep Albumin 2.9 L Urine Blood 03/11/19 03/11/19 14:23 19:11 RBC Hgb Hct MCH RDW Sodium Chloride Calcium Magnesium ALT Creatine Kinase NT-Pro-B Natriuret Pep 79858 H Albumin Urine Blood MODERATE H - Diagnostic Test Radiology reviewed: Reports reviewed Radiology results interpreted by me: 03/11/19 17:16 Chest X-Ray 03/11/19 13:59 IMPRESSION: Fluid overload or congestive failure with interstitial edema and mild bilateral perihilar pulmonary edema - EKG Interpretation by Me Additional EKG results interpreted by me: 03/11/19 17:16 Sinus mechanism with a rate of 69 bpm. First-degree AV block. Left axis deviation. T wave inversion in anterolateral leads concerning for ischemia, no significant change when compared to prior study of May 03, 2017. Critical Care Note - Critical Care Note Total time excluding time spent on procedures (mins): 45 Discharge - Discharge Clinical Impression: Congestive heart failure of unknown etiology, Pulmonary edema cardiac cause, Hypotension, Heroin abuse Condition: Stable Disposition: AGAINST MEDICAL ADVICE Admitting Provider: Dr. Owusu
[2019-03-11] MEDS ORDERED: FUROSEMIDE INJ/PF 20 MG/2 ML SDV IV ONE (17:10)
[2019-03-11] MEDS ORDERED: HEPARIN SODIUM,PORCINE/D5W 25,000 UNIT/250 ML RTUINJ IV PRN (17:12)
[2019-03-11] MEDS ORDERED: HEPARIN SOD (PORCINE) 1,000 UNIT/ML 10 ML VIAL IV ONE (17:12)
[2019-03-11] MEDS ORDERED: HEPARIN SODIUM,PORCINE/D5W 25,000 UNIT/250 ML RTUINJ IV ONE (17:28)
[2019-03-11] MEDS ORDERED: NICOTINE 21 MG/24 HR PATCH.TD24 TD ONE (18:40)
[2019-03-11 19:19] VITALS: BP 120/41
[2019-03-11 19:20] LABS: INTERNATIONAL RATION (INR) 1.06; PROTHROMBIN TIME 14.3 SEC (11.4-15.4)
[2019-03-11 19:21] LABS: PARTIAL THROMBOPLASTIN TIME 35.4 SEC (23.5-35.8)
[2019-03-11 19:25] LABS: APPEARANCE,URINE CLEAR; BILIRUBIN,URINE NEGATIVE (NEGATIVE); COLOR,URINE YELLOW; GLUCOSE, URINE NEGATIVE (NEGATIVE); KETONES,URINE NEGATIVE (NEGATIVE); LEUKOCYTE ESTERASE,URINE NEGATIVE (NEGATIVE); NITRITE,URINE NEGATIVE (NEGATIVE); PROTEIN,URINE NEGATIVE (NEGATIVE); URINE SPECIFIC GRAVITY 1.006; UROBILINOGEN,URINE NEGATIVE mg/dL (<2.0)
[2019-03-11 19:38] LABS: URINE AMPHETAMINES SCREEN NEGATIVE; URINE BARBITURATES SCREEN NEGATIVE; URINE BENZODIAZEPINES SCREEN NEGATIVE; URINE COCAINE SCREEN UNCONFIRMED POSITIVE; URINE MARIJUANA (THC) SCREEN NEGATIVE; URINE METHADONE SCREEN NEGATIVE; URINE PHENCYCLIDINE SCREEN NEGATIVE
--- NOTE | 2019-03-11 23:25 | EKG REPORT ---
SEVERITY:- ABNORMAL ECG - SINUS RHYTHM ATRIAL PREMATURE COMPLEX BORDERLINE LEFT AXIS DEVIATION ABNORMAL T, CONSIDER ISCHEMIA, ANT-LAT LEADS : Confirmed by: Shira Mejia MD 11-Mar-2019 23:24:21
== END 2019-03-11 19:28 | disposition left against medical advice (07) ==
LOC: ER 13:45
DX: I50.9 Heart failure, unspecified (principal); J81.1 Chronic pulmonary edema; I95.9 Hypotension, unspecified; F11.10 Opioid abuse, uncomplicated; M54.5 Low back pain; R06.02 Shortness of breath; R53.1 Weakness; F17.200 Nicotine dependence, unspecified, uncomplicated; I10 Essential (primary) hypertension
CPT/HCPCS: 93005; 96376; 99285; 96361; 96375; 96365; 96366; 36415; 87040; 82553; 80307 ×2; 82550; 83735; 85025; 85610; 85730; 87077; 80053; 81001; 84484; 87186; 83605; 83880; 71045; 93010; J1644 ×2; J1940; J7030

== ENCOUNTER 2019-03-12 19:54 | Emergency (ER) | payer SELFPAY ==
[2019-03-12] MEDS ORDERED: ASPIRIN 81 MG TABLET, CHEWABLE PO ONE (20:34)
[2019-03-12] MEDS ORDERED: VANCOMYCIN HCL INJ 1000 MG VIAL IV ONE ×2 (20:48→22:03)
[2019-03-12 20:49] LABS: ABSOLUTE BASOPHILS # (AUTO) 0.1 10^3/uL (0.0-0.2); ABSOLUTE LYMPHOCYTES (AUTO) 1.3 10^3/uL (0.5-4.7); ABSOLUTE MONOCYTES (AUTO) 0.6 10^3/uL (0.1-1.4); BASOPHILS % (AUTO) 1.2 % (0-2); EOSINOPHILS % (AUTO) 0.3 % (0-6); HEMATOCRIT 28.3 % (37.9-51.0); HEMOGLOBIN 9.3 g/dL (13.5-17.0); LYMPHOCYTES % (AUTO) 14.6 % (13-45); MEAN CORPUSCULAR HEMOGLOBIN 26.7 pg (27.0-33.4); MEAN CORPUSCULAR VOLUME 81 fl (80-97); MONOCYTES % (AUTO) 6.2 % (3-13); PLATELET COUNT 155 10^3/uL (150-450); SEGMENTED NEUTROPHILS % (AUTO) 77.7 % (42-78); TOTAL CELLS COUNTED % (AUTO) 100 %
[2019-03-12 21:06] LABS: ALANINE AMINOTRANSFERASE 21 U/L (21-72); ALBUMIN 2.6 g/dL (3.5-5.0); ALKALINE PHOSPHATASE 65 U/L (38-126); ANION GAP 7 (5-19); ASPARTATE AMINO TRANSFERASE 18 U/L (17-59); BILIRUBIN,DIRECT 0.4 mg/dL (0.0-0.4); BILIRUBIN,TOTAL 1.5 mg/dL (0.2-1.3); BLOOD UREA NITROGEN 13 mg/dL (7-20); CALCIUM 8.3 mg/dL (8.4-10.2); CARBON DIOXIDE 30 mmol/L (22-30); CHLORIDE 99 mmol/L (98-107); GLUCOSE 101 mg/dL (75-110); POTASSIUM 4.2 mmol/L (3.6-5.0); SODIUM 136.3 mmol/L (137-145); TOTAL PROTEIN 5.9 g/dL (6.3-8.2)
--- NOTE | 2019-03-12 21:17 | RADIOLOGY REPORT (SQ) ---
EXAM DESCRIPTION: [facility]: XR CHEST 1 VIEW CLINICAL HISTORY: 48 years Male, sp COMPARISON: 03/11/2019 FINDINGS: Central interstitial edema has improved. There is no focal acute infiltrate. No pneumothorax or pleural effusion. Mediastinum is within normal limits for this positioning. Bony structures are unremarkable. IMPRESSION: 1. Improved aeration since yesterday.
[2019-03-12] MEDS ORDERED: CEFEPIME 2 GM/D5W RTU 2 GM/50 ML RTUPB IV ONE (22:03)
--- NOTE | 2019-03-12 22:07 | ER Document Report ---
ED Medical Screen (RME) - General Chief Complaint: Chest Pain Stated Complaint: CHEST PAIN Time Seen by Provider: 03/12/19 20:33 TRAVEL OUTSIDE OF THE [place] IN LAST 30 DAYS: No - HPI Notes: 03/12/19 22:04 Patient is a 48-year-old male who presents to the emergency department for evaluation of chest pain and dyspnea with exertion. Actually the pleasure of seeing this gentleman yesterday. He was found to have a new onset heart murmur, decompensated heart failure. He was medicated here with Lasix, heparin, aspirin, was set to be transferred. At that point yesterday he did decide to leave AGAINST MEDICAL ADVICE. Today he states that his dyspnea with exertion is worse. He states now he cannot walk more than 10 feet without becoming extremely short of breath. He also complains of some orthopnea. He states he started having chest pain earlier today. He describes it as a squeezing, rates it at a 4-5 out of 10. Nothing seems to bring it on or make it worse. He does admit to using heroin and cocaine again today. He states he last injected at 530 this evening, also "did a few lines" at that point. - Related Data Smoking: Cigarettes, Greater than 1 pack/day Frequency of alcohol use: None Drug Abuse: Cocaine, Heroin Allergies/Adverse Reactions: milnacipran HCl [From [facility]] Allergy (Verified 03/11/19 13:46) Past Medical History - General Information source: Patient - Social History Chew tobacco use (# tins/day): No Frequency of alcohol use: None Drug Abuse: Cocaine, Heroin - Past Medical History Cardiac Medical History: Reports: Hx Hypertension Renal/ Medical History: Denies: Hx Peritoneal Dialysis Musculoskeltal Medical History: Reports Hx Arthritis Skin Medical History: Denies Hx MRSA Past Surgical History: Reports: Hx Orthopedic Surgery - Immunizations Immunizations up to date: No Hx Diphtheria, Pertussis, Tetanus Vaccination: Yes Physical Exam - Vital signs Vitals: Temp Pulse Resp BP Pulse Ox 98.2 F 89 22 H 116/40 L 93 03/12/19 20:20 03/12/19 20:20 03/12/19 20:20 03/12/19 20:20 03/12/19 20:20 - Notes Notes: 48-year-old male, appears much older than his stated age in no acute distress. Head is normocephalic and atraumatic. Heart is regular rate and rhythm with systolic murmur noted. Lungs show very mild bibasilar rales. Abdomen is soft nontender. Extremities show 1+ ankle edema bilaterally, slightly improved from yesterday. Course - Re-evaluation Re-evalutation: 03/12/19 22:06 Patient presented to the emergency department for evaluation. He was evaluated by myself, laboratory investigations ordered. He was hypoxic when supine, sit placed upright and placed on 2 L oxygen per nasal cannula. I did review his microbiology. He has Streptococcus noted on blood culture. My strong suspicion is that this patient will have endocarditis. He was given vancomycin at 15 m g/kg. I have greeted and performed a rapid initial assessment of this patient. A comprehensive ED assessment and evaluation of the patient, analysis of test results and completion of medical decision making process will be conducted by an additional ED providers. - Vital Signs Vital signs: Temp Pulse Resp BP Pulse Ox 98.2 F 89 18 113/44 L 96 03/12/19 20:20 03/12/19 20:20 03/12/19 21:26 03/12/19 21:26 03/12/19 21:26 - Laboratory Result Diagrams: 03/12/19 20:34 03/12/19 20:34 Laboratory results interpreted by me: 03/12/19 03/12/19 03/12/19 20:34 20:34 20:34 RBC 3.50 L Hgb 9.3 L Hct 28.3 L MCH 26.7 L RDW 16.0 H Sodium 136.3 L Calcium 8.3 L Total Bilirubin 1.5 H NT-Pro-B Natriuret Pep 88980 H Total Protein 5.9 L Albumin 2.6 L
[2019-03-12] MEDS ORDERED: FUROSEMIDE INJ/PF 20 MG/2 ML SDV IV ONE (22:11)
[2019-03-12] MEDS ORDERED: HEPARIN SOD (PORCINE) 1,000 UNIT/ML 10 ML VIAL IV ONE (22:12)
[2019-03-12 22:27] LABS: PARTIAL THROMBOPLASTIN TIME 33.2 SEC (23.5-35.8); PROTHROMBIN TIME 14.8 SEC (11.4-15.4)
[2019-03-12] MEDS ORDERED: NICOTINE 21 MG/24 HR PATCH.TD24 TD ONE (22:56)
--- NOTE | 2019-03-12 22:56 | ER Document Report ---
ED General - General Chief Complaint: Chest Pain Stated Complaint: CHEST PAIN Time Seen by Provider: 03/12/19 20:33 Notes: Patient is a 48-year-old male who presents to the emergency department for evaluation of chest pain and dyspnea with exertion. Yesterday the patient was seen in the emergency department, was found to have a new onset heart murmur, decompensated heart failure. He was medicated here with Lasix, heparin, aspirin, was set to be transferred. At that point yesterday he did decide to leave AGAINST MEDICAL ADVICE. Today he states that his dyspnea with exertion is worse. He states now he cannot walk more than 10 feet without becoming extremely short of breath. He also complains of some orthopnea. He states he started having chest pain earlier today. He describes it as a squeezing, rates it at a 4-5 out of 10. Nothing seems to bring it on or make it worse. Regards it is being moderate to severe. He does admit to using heroin and cocaine again today. He states he last injected at 530 this evening, also "did a few lines" at that point. TRAVEL OUTSIDE OF THE [place] IN LAST 30 DAYS: No - Related Data Allergies/Adverse Reactions: milnacipran HCl [From [facility]ella] Allergy (Verified 03/11/19 13:46) Past Medical History - General Information source: Patient - Social History Smoking Status: Current Every Day Smoker Chew tobacco use (# tins/day): No Frequency of alcohol use: None Drug Abuse: Cocaine, Heroin Family History: Reviewed & Not Pertinent Patient has suicidal ideation: No Patient has homicidal ideation: No - Past Medical History Cardiac Medical History: Reports: Hx Hypertension Renal/ Medical History: Denies: Hx Peritoneal Dialysis Musculoskeletal Medical History: Reports Hx Arthritis Skin Medical History: Denies Hx MRSA Past Surgical History: Reports: Hx Orthopedic Surgery - Immunizations Immunizations up to date: No Hx Diphtheria, Pertussis, Tetanus Vaccination: Yes Review of Systems - Review of Systems Notes: Constitutional: Negative for fever. HENT: Negative for sore throat. Eyes: Negative for visual changes. Cardiovascular: Positive for chest pain. Respiratory: Positive for shortness of breath. Gastrointestinal: Negative for abdominal pain, vomiting or diarrhea. Genitourinary: Negative for dysuria. Musculoskeletal: Negative for back pain. Skin: Negative for rash. Neurological: Negative for headaches, weakness or numbness. 10 point ROS negative except as marked above and in HPI. Physical Exam - Vital signs Vitals: Temp Pulse Resp BP Pulse Ox 98.2 F 89 22 H 116/40 L 93 03/12/19 20:20 03/12/19 20:20 03/12/19 20:20 03/12/19 20:20 03/12/19 20:20 Interpretation: Normal Notes: PHYSICAL EXAMINATION: GENERAL: Appears somewhat ill but in no acute distress HEAD: Atraumatic, normocephalic. EYES: Pupils equal round and reactive to light, extraocular movements intact, sclera anicteric, conjunctiva are normal. ENT: nares patent, oropharynx clear without exudates. Mildly dry mucous membranes. NECK: Normal range of motion, supple without lymphadenopathy LUNGS: Breath sounds clear to auscultation bilaterally and equal. No wheezes r ales or rhonchi. HEART: Regular rate and rhythm, 4 out of 6 systolic ejection murmur ABDOMEN: Soft, nontender, normoactive bowel sounds. No guarding, no rebound. No masses appreciated. EXTREMITIES: Normal range of motion, 2+ pitting edema in the bilateral lower extremities that is equal and symmetric. No cyanosis. NEUROLOGICAL: No focal neurological deficits. Moves all extremities spontaneo usly and on command. PSYCH: Normal mood, normal affect. SKIN: Warm, Dry, normal turgor, no rashes or lesions noted. 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 The patient was evaluated yesterday, both blood cultures have reviewed come back positive for gram-positive cocci in chains. Patient has been started on vancomycin and cefepime. Heparin and aspirin also been administered. Patient was also given furosemide 20 mg IV. He is maintaining saturations of 97% on 2 L by nasal cannula. On exam he does have a systolic ejection murmur, 3+ pitting edema in the bilateral lower extremities is equal and symmetric. He is committed to staying here and being transferred to [facility]. I have contacted [facility] and requested transfer. 03/13/19 00:17 I discussed this case with Dr. Valerio at [facility] who is accepted the patient in transfer. 03/13/19 03:10 EMS has arrived for patient transfer. He is stable and appropriate for transport at this time. - Vital Signs Vital signs: Temp Pulse Resp BP Pulse Ox 98.2 F 89 20 101/42 L 97 03/12/19 20:20 03/12/19 20:20 03/12/19 23:02 03/12/19 23:02 03/12/19 23:02 - Laboratory Result Diagrams: 03/12/19 20:34 03/12/19 20:34 Laboratory results interpreted by me: 03/12/19 03/12/19 03/12/19 20:34 20:34 20:34 RBC 3.50 L Hgb 9.3 L Hct 28.3 L MCH 26.7 L RDW 16.0 H Sodium 136.3 L Calcium 8.3 L Total Bilirubin 1.5 H NT-Pro-B Natriuret Pep 96941 H Total Protein 5.9 L Albumin 2.6 L Urine Blood Urine Urobilinogen 03/12/19 21:25 RBC Hgb Hct MCH RDW Sodium Calcium Total Bilirubin NT-Pro-B Natriuret Pep Total Protein Albumin Urine Blood MODERATE H Urine Urobilinogen 2.0 H - Diagnostic Test Radiology reviewed: Image reviewed, Reports reviewed Radiology results interpreted by me: 03/13/19 03:10 Chest x-ray: Mild interstitial edema bilaterally - EKG Interpretation by Me Additional EKG results interpreted by me: 03/13/19 03:11 Sinus rhythm, rate 89. No ST elevations or depressions. QTC is 468. Discharge - Discharge Clinical Impression: Shortness of breath, Heroin abuse Endocarditis Qualifiers: Endocarditis type: infective Infective endocarditis organism: bacterial Chronicity: acute Qualified Code(s): I33.0 - Acute and subacute infective endoc arditis CHF (congestive heart failure) Qualifiers: Heart failure type: unspecified Heart failure chronicity: unspecified Qualified Code(s): I50.9 - Heart failure, unspecified Condition: Fair Disposition: [facility]
[2019-03-12 23:12] LABS: AMORPHOUS SEDIMENT,URINE TRACE /HPF; APPEARANCE,URINE TURBID; BILIRUBIN,URINE NEGATIVE (NEGATIVE); COLOR,URINE AMBER; GLUCOSE, URINE NEGATIVE (NEGATIVE); KETONES,URINE NEGATIVE (NEGATIVE); LEUKOCYTE ESTERASE,URINE NEGATIVE (NEGATIVE); NITRITE,URINE NEGATIVE (NEGATIVE); PROTEIN,URINE NEGATIVE (NEGATIVE); URINE SPECIFIC GRAVITY 1.017
--- NOTE | 2019-03-12 23:43 | EKG REPORT ---
SEVERITY:- BORDERLINE ECG - SINUS RHYTHM PROBABLE LEFT ATRIAL ABNORMALITY BORDERLINE LEFT AXIS DEVIATION : Confirmed by: Shira Mejia MD 12-Mar-2019 23:42:35
[2019-03-13] MEDS ORDERED: HEPARIN SOD (PORCINE) 1,000 UNIT/ML 10 ML VIAL IV PRN (01:13)
[2019-03-13] MEDS ORDERED: HEPARIN SODIUM,PORCINE/D5W 25,000 UNIT/250 ML RTUINJ IV PRN (01:46)
[2019-03-13 04:45] VITALS: BP 100/46
== END 2019-03-13 02:50 | disposition short-term general hospital (02) ==
LOC: ER 19:54
DX: I33.0 Acute and subacute infective endocarditis (principal); B96.89 Other specified bacterial agents as the cause of diseases classified elsewhere; I11.0 Hypertensive heart disease with heart failure; I50.9 Heart failure, unspecified; F11.10 Opioid abuse, uncomplicated; F14.10 Cocaine abuse, uncomplicated; R01.1 Cardiac murmur, unspecified; F17.200 Nicotine dependence, unspecified, uncomplicated; Z88.6 Allergy status to analgesic agent
CPT/HCPCS: 93005; 36415; 87040; 85025; 85610; 85730; 87077; 80053; 81001; 84484; 87186; 83880; 71045; 93010; J1644 ×2; J1940; J3370; J0692